=== PATIENT | female | born 1965 | race Caucasian/White ===

== ENCOUNTER 2016-02-23 15:40 | Emergency (ER) | payer BC ==
--- NOTE | 2016-02-23 16:29 | Emergency Department Record ---
History of Present Illness - General Chief complaint: Extremity Problem Stated complaint: RT HAND INJURY Time Seen by Provider: 02/23/16 16:29 Source: Patient Mode of Arrival: Ambulatory Limitations: No limitations - History of Present Illness Initial comments: The patient has been having pain to her R anterior wrist for about 2 months. She thinks she may have injured it somehow. This morning she was having some numbness to the 5th>4th fingers so she decided to come to the ER. She denies any recent fall or injury. MD Complaint: Extremity pain Onset/Timin -: Month(s) Location: Right, Hand History of Same: No Radiation: Proximal, Distal Severity scale (1-10): 6 Quality: Aching, Other Consistency: Constant Improves with: Immobilization Worsens with: Other - Related Data Home Medications Medication Instructions Recorded Confirmed Last Taken No Home Med [NO HOME MEDS] 02/23/16 02/23/16 Unknown Allergies Allergy/AdvReac Type Severity Reaction Status Date / Time codeine Allergy Severe loss of Verified 02/23/16 16:27 body function Travel Screening - Travel/Exposure Within Last 30 Days Have you traveled within the last 30 days?: No Review of Systems Constitutional: Denies: Chills, Fever Eyes: Denies: Eye discharge ENT: Denies: Congestion Respiratory: Denies: Cough, Dyspnea Cardiovascular: Denies: Arrhythmia, Chest pain Past Medical History - SOCIAL HISTORY Smoking Status: Current every day smoker Alcohol Use: None Drug Use: None - RESPIRATORY Hx Respiratory Disorders: Yes Hx Asthma: Yes - CARDIOVASCULAR Hx Cardio Disorders: No - NEURO Hx Neuro Disorders: No - GI Hx GI Disorders: No - Hx Genitourinary Disorders: No - ENDOCRINE Hx Endocrine Disorders: No - MUSCULOSKELETAL Hx Musculoskeletal Disorders: Yes Hx Arthritis: Yes - PSYCH Hx Psych Problems: No - HEMATOLOGY/ONCOLOGY Hx Hematology/Oncology Disorders: No Family Medical History Any Significant Family History?: No Physical Exam - General General Appearance: Alert, Oriented x3, Cooperative, No acute distress - Head Head exam: Atraumatic, Normocephalic, Normal inspection - Eye Eye exam: Normal appearance, PERRL - Extremities Extremities exam: Normal inspection, Full ROM, Tenderness (There is tenderness to the anterior wrist over the distal ulna. ), Other (The R hand is NVI with possibly some mild decreased senstation to the 5th finger.) Course Vital Signs 02/23/16 16:20 Temperature 98.7 F Pulse Rate 90 Respiratory 16 Rate Blood Pressure 159/79 Pulse Ox 99 - Reevaluation(s) Reevaluation #1: I did discuss the xrays with the patient and the need for F/U with a Hand Specialist. 02/23/16 17:13 Medical Decision Making - Data Complexity MDM Data: X-Ray Ordered and/or Reviewed (R Wrist: No acute bony changes per Rad. Pos for arthritis.) Disposition Disposition: Discharge Clinical Impression: Wrist pain, right Disposition: Home, Self-Care Condition: (1) Good Instructions: Arthralgia (ED) Additional Instructions: Please wear the wrist splint when possible. Take Motrin or Tylenol for pain. Please see a Hand Specialist next week for recheck. Forms: Patient Portal Access Time of Disposition: 17:12
--- NOTE | 2016-02-28 08:04 | RADIOLOGY REPORT ---
EXAM: RIGHT WRIST HISTORY: CHRONIC PAIN WITHIN THE RIGHT WRIST. TECHNIQUE: Four views of the right wrist were provided without comparison studies. FINDINGS: There is no radiographic evidence of a fracture or dislocation of the right wrist. No significant soft tissue abnormalities are visualized. There is mild to moderate joint space narrowing with subchondral sclerosis at the radiocarpal articulation suggesting arthrosis. IMPRESSION: MILD TO MODERATE ARTHROSIS AT THE RADIOCARPAL ARTICULATION WITHOUT RADIOGRAPHIC EVIDENCE OF AN ACUTE PROCESS INVOLVING THE RIGHT WRIST. IF THERE IS FURTHER CLINICAL CONCERN, THEN AN MRI OF THE RIGHT WRIST CAN BE OBTAINED FOR FURTHER EVALUATION. JOB NUMBER: [id number] MTDD
== END 2016-02-23 17:23 | disposition home or self-care (01) ==
LOC: ER 15:40
DX: M25.531 Pain in right wrist (principal); R20.0 Anesthesia of skin
CPT/HCPCS: 99283